=== PATIENT | female | born 1965 | race Hispanic/Latino ===

== ENCOUNTER 2016-12-30 08:34 | Outpatient (CLI) | payer OTHER ==
--- NOTE | 2016-12-30 13:24 | MRI ---
LEFT KNEE MRI WITHOUT IV CONTRAST: HISTORY: A 51-year-old female with worsening pain and instability since injury in 2009. FINDINGS: Multiplanar, multisequence MRI examination of the left knee is performed. There is evidence for nubia nt effusion with some suprapatellar recess distention. There is some focal irregular cartilage loss involving the central trochlear groove with some full-thickness cartilage fissures. There is a lar ge complex tear of the medial meniscus, primarily involving the posterior horn and body with a large area of very minimal residual meniscal tissue in the region of the body. Prominent irregular carti liane loss of the medial compartment. The lateral meniscus is a borderline discoid meniscus without evidence for acute tear. The anterior and posterior cruciate ligaments, collateral ligament complex es, and quadriceps and patellar tendons are intact. No acute osteochondral defect or abnormal marro w signal. IMPRESSION: 1. Large, complex tear of the medial meniscus involving the body and extending to the posterior hor n, with a large area of very deficient appearing meniscus at the level of the body. 2. Evidence for joint effusion. 3. Borderline discoid lateral meniscus without evidence for tear. 4. Minimal cartilage loss involving the central trochlear groove, and moderate to severe cartilage loss of the medial compartment. POS: [facility]
== END 2016-12-30 08:35 | disposition home or self-care (01) ==
LOC: MRI 08:34
PROVIDERS: ATTEND Family Medicine
DX: M25.562 Pain in left knee (principal); M25.462 Effusion, left knee